=== PATIENT | female | born 1940 | race Caucasian/White ===

== ENCOUNTER 2016-12-02 06:53 | Emergency (ER) | payer MEDICARE, OTHER ==
[2016-12-02 07:05] VITALS: TEMP 98.9; BMI 29.0
--- NOTE | 2016-12-02 09:31 | EDPRACDOC ---
- General Information Chief Complaint: Sore Throat Stated Complaint: THROAT PAIN Time Seen by Provider: 12/02/16 08:28 Information Source: Patient Home Medications: Home Medications Amlodipine [Norvasc] 2.5 mg PO HS 08/13/16 Pantoprazole Sodium [Protonix] 40 mg PO QAM 08/13/16 Azithromycin [Zithromax] 250 mg PO DAILY #6 tablet 12/02/16 Dm Hb/Pseudoephed/Acetamin/Cp [Tylenol Cold Caplet] 1 tab PO Q4-6H PRN 12/02/16 Hydrocodone Bit/Homatropine [Hydrocodone-Homatropine Syrup] 1 tsp PO Q8H PRN 02/13 Prednisone [Deltasone] 20 mg PO DAILY #3 tablet 12/02/16 Allergies/Adverse Reactions: Allergies Allergy/AdvReac Type Severity Reaction Status Date / Time lisinopril Allergy Anaphylaxis Verified 12/02/16 07:58 * Penicillins Allergy Diarrhea Verified 12/02/16 07:58 - History of Present Illness Onset: 3 days Medications/Treatment [employer] Ibuprofen/Acetaminophen (Dose/ tylenol cold medicine Time) Sore Throat Symptoms: Reports: Pain Pain Severity: Reports: Mild, Moderate Urinary Output: Normal Oral Intake: Normal Associated Signs and Symptoms: Reports: Fever (LOW GRADE), Cough, Other (COUGH AND SHOB, PAIN IN THROAT). Denies: Chills, Rash, Nasal Symptoms, Earache, Abdominal Pain - Treatment Prior to ED Arrival Reported Medications/Treatment [employer] Ibuprofen/Acetaminophen (Dose/ tylenol cold medicine Time) ED Past Medical History - History Reviewed Yes Nurses notes reviewed and agree except as marked - Patient Medical History Neurological History: Denies: Cerebrovascular Accident, Dementia Cardiac History: Reports: Hypertension. Denies: Atrial Fibrillation, Congestive Heart Failure, Heart Attack, Hypercholesterolemia Respiratory History: Denies: Asthma, COPD, Emphysema GI/ History: Reports: Gastroesophageal Reflux Musculoskeletal History: Denies: Arthritis, Gout, Rheumatoid Arthritis, Osteoarthritis Psychological History: Denies: Depression, Anxiety, Schizophrenia, Bipolar Disorder, Substance Use Disorder Systemic History: Denies: Cancer, Diabetes, Hyperthyroidism, Hypothyroidism Additional Past Medical History: RARELY GOES TO THE DOCTOR (NONE IN ~3-4 YEARS) Surgical History: Reports: Hysterectomy, Other (Not sure she has had an appendectomy) - Family Medical History Reports: Hypertension, Diabetes, Cancer (sister thyroid), Stroke (mom), Cardiac Disorders, Respiratory Disorders (dad), Renal Disease (renal failure) - Social Medical History Smoking Status: Current some day smoker Social History: Denies: Substance Use Disorder EDM Review of Systems - Review of Systems ROS Negative Except as Marked: Yes All systems reviewed and were negative except as marked - Physical Exam Constitutional: Alert (Awake), No apparent distress Oriented to: Time, Person, Place Last recorded Vital Signs: Last Vital Signs Temp 98.9 F 12/02/16 07:01 Pulse 85 12/02/16 07:01 Resp 20 12/02/16 07:01 BP 167/70 12/02/16 07:01 Pulse Ox Oxygen Pulse Oxygen Saturation O2 Device Oxygen Flow Rate Fraction of Inspired Oxygen ( FIO2) - HEENT Head: Normal ( normocephalic) Eye Exam: Normal (PERRL, EOMI, Sclera white) Oropharynx: Exudate, Red, Tonsillar Hypertrophy (MILD). negative: Membranes Dry Tympanic Membrane: Normal ENT EAC: Normal TMJ: Normal Nose: No Symptoms Reported (septum midline) Neck: Normal (FROM, trachea at midline). negative: Limited ROM, Lymphadenopathy , Meningeal Signs - Respiratory/Cardiovascular Respiratory: Normal - CTA (BBS clear to auscultation without adventitious sounds ) Cardiovascular: Normal (RRR without murmur, gallop or rub) - GI Auscultation: Normal (NABS) Palpation: Normal (Soft,No rebound or guarding, non distended) Tenderness: Non tender Gonzáles's Sign: Negative - Musculoskeletal Back: Normal (Non-Tender) Extremities: Normal (Normal tone, Pulses 2+ No cyanosis or edema, FROM) - Integumentary Skin: Normal, Warm, Dry Lymphatics: Normal (no adenopathy) - Neurologic Memory Impaired: Normal Motor Function: Normal (Normal tone, Pulses 2+ No cyanosis or edema, FROM) Cerebellar: Normal Mood Description: Normal Thought: Coherent Perception: Normal - Additional Information EXUDATE ON TONSILS,, ASSOC SYMPTOMS OF BRONCHITIS. WILL TREAT WITH ABX. - Departure Disposition: Home Condition: Stable Final Diagnosis: Pharyngitis Instructions: Pharyngitis (ED) Education/Counseling Given To: Patient, Family Member Education/Counseling Given Regarding: Diagnosis, Treatment, Prognosis Prescriptions: Azithromycin [Zithromax] 250 mg PO DAILY #6 tablet Prednisone [Deltasone] 20 mg PO DAILY #3 tablet
[2016-12-02 09:51] VITALS: BP 143/64; PULSE 94
== END 2016-12-02 09:49 | disposition home or self-care (01) ==
LOC: ED 06:53
DX: J02.9 Acute pharyngitis, unspecified (principal); Z72.0 Tobacco use
CPT/HCPCS: 99283